=== PATIENT | male | born 1955 | race Caucasian/White ===

== ENCOUNTER 2018-08-11 13:25 | Outpatient (CLI) | payer BC ==
[2018-08-11 14:16] LABS: Hemoglobin 15.2 g/dL (14.0-18.0); Mean Corpuscular Hemoglobin 29.1 pg (27.0-31.0); Mean Corpuscular Volume 85.6 fL (78.0-98.0); Mean Platelet Volume 7.1 fL (7.4-10.4); Platelet Count 168 thou/uL (130-400); RBC Distribution Width 11.8 % (11.5-14.5); Red Blood Cell (RBC) Count 5.23 mill/uL (4.70-6.10)
[2018-08-11 14:23] LABS: INR-International Normal Ratio 1.1; PTT 27.8 SEC (22.9-36.1); Prothrombin Time 13.9 SEC (12.0-14.7)
[2018-08-11 14:36] LABS: Anion Gap 9 mmol/L (10-20); BUN (Urea Nitrogen) 15 mg/dL (8.4-25.7); Calc. Creatinine Clearance 0 mL/min (70-130); Calcium 9.7 mg/dL (7.8-10.44); Carbon Dioxide 26 mmol/L (23-31); Chloride 106 mmol/L (98-107); Estimated GFR-MDRD 80; Glucose 87 mg/dL (80-115); Potassium 3.9 mmol/L (3.5-5.1); Sodium 137 mmol/L (136-145)
== END 2018-08-11 13:26 | disposition home or self-care (01) ==
LOC: LABBT 13:25
PROVIDERS: ATTEND Surgery
DX: Z01.818 Encounter for other preprocedural examination (principal); M48.061 Spinal stenosis, lumbar region without neurogenic claudication; M54.16 Radiculopathy, lumbar region
CPT/HCPCS: 80048; 85027; 85610; 85730

== ENCOUNTER 2018-08-19 07:31 | Day surgery (SDC) | payer BC ==
[2018-08-11 13:36] VITALS: BMI 26.9
[2018-08-19] MEDS ORDERED: CEFAZOLIN 2 GM/50 ML BAG ONE (08:27)
[2018-08-19] MEDS ORDERED: Sodium Chloride 0.9% 10 ML ONE (08:59)
[2018-08-19] MEDS ORDERED: Bacitracin Zinc Ointment 30 gm TUBE ONE (09:00)
[2018-08-19] MEDS ORDERED: Thrombin 5000 UNITS/5 ML VIAL ONE (09:00)
[2018-08-19] MEDS ORDERED: Metoclopramide HCl 10 MG/2 ML VIAL ONE (09:46)
[2018-08-19] MEDS ORDERED: Ondansetron PF 4 MG/2 ML Vial ONE (09:46)
[2018-08-19] MEDS ORDERED: PHENYLEPHRINE-NS 100 MCG/ML 10 ML SYRINGE ONE (09:46)
[2018-08-19] MEDS ORDERED: Lidocaine 1% PF 5 ML VIAL ONE (09:46)
[2018-08-19] MEDS ORDERED: Glycopyrrolate 0.2 MG/ML 5 ML SYRINGE ONE (09:46)
[2018-08-19] MEDS ORDERED: Ketorolac Tromethamine 30 MG/ML VIAL ONE (09:46)
[2018-08-19] MEDS ORDERED: Dexamethasone 20 MG/5 ML VIAL ONE (09:46)
[2018-08-19] MEDS ORDERED: PROPOFOL 200 MG/20 ML VIAL ONE (09:46)
[2018-08-19] MEDS ORDERED: Fentanyl 250 MCG/5 ML VIAL ONE (09:57)
[2018-08-19] MEDS ORDERED: HYDROmorphone 2 MG/ML VIAL SLOW IVP PRN (11:27)
[2018-08-19] MEDS ORDERED: Promethazine HCl 25 MG/ML VIAL SLOW IVP PRN (11:27)
[2018-08-19] MEDS ORDERED: PACU-Morphine 4MG/ML VIAL SLOW IVP PRN (11:27)
[2018-08-19] MEDS ORDERED: Promethazine HCl 25 MG/ML VIAL IM PRN ×2 (11:27→12:24)
[2018-08-19] MEDS ORDERED: Ondansetron HCl/PF 4 MG/2 ML Vial IVP PRN (11:27)
[2018-08-19] MEDS ORDERED: Meperidine HCl/PF 25 MG/ML VIAL SLOW IVP PRN (11:27)
[2018-08-19] MEDS ORDERED: Morphine Sulfate 2 MG/ML SYRINGE SLOW IVP PRN (11:27)
[2018-08-19] MEDS ORDERED: HYDROmorphone 2 MG/ML VIAL ONE (12:19)
[2018-08-19] MEDS ORDERED: Milk Of Magnesia 30 ML UDCUP PO PRN (12:24)
[2018-08-19] MEDS ORDERED: HYDROcodone/Acetaminophen 7.5/325 mg Tablet PO PRN (12:24)
[2018-08-19] MEDS ORDERED: Bisacodyl 10 MG SUPP PR PRN (12:24)
[2018-08-19] MEDS ORDERED: tiZANidine HCl 4 MG TAB PO PRN (12:24)
[2018-08-19] MEDS ORDERED: Morphine 2 MG/ML SYRINGE SLOW IVP PRN (12:24)
[2018-08-19] MEDS ORDERED: Mag-Al 1200 mg/1200 mg/30 ML UDCUP PO PRN (12:24)
[2018-08-19] MEDS ORDERED: traMADol HCl 50 MG TAB PO PRN (12:24)
[2018-08-19] MEDS ORDERED: Acetaminophen 325 MG TAB PO PRN (12:24)
[2018-08-19] MEDS ORDERED: Fleet Enema 133 ML BOT PR PRN (12:24)
[2018-08-19] MEDS ORDERED: CEFAZOLIN/Water 2 GM/20 ML SYRINGE SLOW IVP SCH (12:30)
[2018-08-19] MEDS ORDERED: ACETAMINOPHEN PO PRN (12:31)
[2018-08-19] MEDS ORDERED: PHENYLEPHRINE PO PRN (12:31)
[2018-08-19] MEDS ORDERED: [UNRECOGNIZED DRUG - OTHER] PO PRN (12:31)
[2018-08-19] MEDS ORDERED: Oxymetazoline HCl 0.05% (30 ML BOT) NS PRN (12:31)
[2018-08-19] MEDS ORDERED: GUAIFENESIN PO PRN (12:31)
[2018-08-19] MEDS: Sodium Chloride 0.9% 1,000 ML IV SCH (15:24)
[2018-08-19] MEDS: CEFAZOLIN 2 GM/50 ML-DEXTROSE 2 GM in Premix Bag 1 BAG IVPB SCH ×2 (15:24→23:52)
[2018-08-19] MEDS ORDERED: QUETIAPINE FUMARATE PO SCH (21:00)
[2018-08-19] MEDS: Acetaminophen/Codeine 30-300mg Tablet PO PRN (23:52)
[2018-08-20] MEDS: Sodium Chloride 0.9% 1,000 ML IV SCH (05:42)
[2018-08-20] MEDS: Acetaminophen/Codeine 30-300mg Tablet PO PRN (08:57)
[2018-08-20] MEDS ORDERED: Venlafaxine HCl XR 75 MG CAP PO SCH (09:00)
[2018-08-20] MEDS ORDERED: DESVENLAFAXINE 50 MG PO SCH (09:00)
[2018-08-20] MEDS ORDERED: Fluticasone Propionate Nasal Spray 16 gm Bottle NASAL SCH (09:00)
[2018-08-20] MEDS ORDERED: Non-Formulary Item 1 EACH (Losartan Potassium [Losartan Potassium] 1 TAB) PO SCH (09:00)
[2018-08-20] MEDS ORDERED: Losartan 25 MG TAB PO SCH (09:00)
[2018-08-20] MEDS ORDERED: Spironolactone 25 MG TAB PO SCH (09:00)
--- NOTE | 2018-08-20 09:01 | OP ---
DATE OF PROCEDURE: 08/19/2018 OPERATING ROOM: 11. WOUND CLASSIFICATION: Type 1 wound. CUSTOMER SUPPORT ADVISOR: Heriberto Frankel PA-C PREPROCEDURE DIAGNOSIS: Lumbar stenosis with low back and leg pain. POSTPROCEDURE DIAGNOSIS: Lumbar stenosis with low back and leg pain. PROCEDURES PERFORMED: L3-L4 and L4-L5 laminectomies, partial facetectomies, and foraminotomies over the L3, L4, and L5 nerve roots. DESCRIPTION OF PROCEDURE: After informed consent was obtained from the patient, the patient was brought to OR 11. Proper patient pause and identification were carried out. He was placed under excellent general endotracheal anesthesia and positioned prone on the OR table. All appropriate points were padded. We identified the L3, L4, and L5 dorsal spines. A linear albertina was made over this area. This area was sterilely cleansed, prepared, and draped. After proper patient pause and identification were carried out, the wound was then opened with a combination of sharp, monopolar, and blunt dissection. The L3, L4, and L5 dorsal spines and lamina were exposed. Localization film confirmed our area of interest. We then performed L3, L4, and L5 laminectomies, partial facetectomies, and foraminotomies over the L3, L4, and L5 nerve roots. Copious irrigation and hemostasis occurred throughout. The wound was then maximally hemostased and closed in anatomic layers following sprinkling of vancomycin powder. The patient then emerged from anesthesia. Job ID: [id number]
--- NOTE | 2018-08-20 10:10 | PRG ---
DATE OF SERVICE: 08/20/2018 SUBJECTIVE: Mr. Allen is postoperative day #1 from lumbar decompression. He is doing well with resolution in his leg pain. We will plan on dismissing him today. Job ID: [id number]
[2018-08-20 11:49] VITALS: BP 112/69; TEMP 98
== END 2018-08-20 09:35 | disposition home or self-care (01) ==
LOC: SDC 07:31 → SURG B 12:24 → UNDOADMOB 12:24 → SDC 08-20 09:35 → UNDODISOB 08-20 11:45
PROVIDERS: ATTEND Surgery
PROC: 01NB0ZZ Release Lumbar Nerve, Open Approach (ICD-10-PCS; principal; 2018-08-19)
DX: M48.061 Spinal stenosis, lumbar region without neurogenic claudication (principal); I10 Essential (primary) hypertension; Z79.899 Other long term (current) drug therapy; Z90.49 Acquired absence of other specified parts of digestive tract
CPT/HCPCS: 76001; J1100; J1170; J1885; J2001; J2405; J2704; J2765; J3010; J3370; J3490

== ENCOUNTER 2021-07-19 06:49 | Outpatient (CLI) | payer BC ==
[2021-07-19 11:25] LABS: #Basophils 0.1 10x3/uL (0.0-0.2); #Eosinphils 0.2 10x3/uL (0.0-0.5); #Monocytes 0.4 10x3/uL (0.0-1.1); #Neutrophils 1.9 10x3/uL (1.5-8.4); %Basophils 1.3 % (0.0-2.0); %Eosinophils 5.3 % (0.0-6.0); %Lymphocytes 32.6 % (18.0-47.0); %Monocytes 10.1 % (0.0-10.0); %Neutrophils 50.4 % (40.0-75.0); Hemoglobin 14.2 g/dL (13.5-17.5); Mean Corpuscular HGB CONC 32.9 g/dL (32.0-36.0); Mean Corpuscular Volume 85.2 fl (81.2-95.1); Mean Platelet Volume 9.9 fl (7.4-10.4); Platelet Count 143 10x3/uL (150-450); RBC Distribution Width 13.8 % (11.5-14.5); Red Blood Cell (RBC) Count 5.07 10x6/uL (4.32-5.72); White Blood Cell (WBC) Count 3.8 10x3/uL (3.5-10.5)
[2021-07-19 11:34] LABS: ALT (SGPT) 22 U/L (8-55); AST (SGOT) 20 U/L (5-34); Albumin 4.3 g/dL (3.4-4.8); Alkaline Phosphatase 63 U/L (40-110); Anion Gap 12 mmol/L (10-20); BUN (Urea Nitrogen) 16 mg/dL (8.4-25.7); Bilirubin, Total 0.4 mg/dL (0.2-1.2); Calc. Creatinine Clearance 0 mL/min (70-130); Calcium 9.2 mg/dL (7.8-10.44); Carbon Dioxide 24 mmol/L (23-31); Chloride 109 mmol/L (98-107); Cholesterol 191 mg/dl (< 200 Desired); Globulin 2.7 g/dL (2.4-3.5); Glucose 105 mg/dL (80-115); HDL Cholesterol 32 mg/dL (>60 Neg Risk); LDL Cholesterol, Calculated 129 mg/dL; Potassium 4.2 mmol/L (3.5-5.1); Sodium 141 mmol/L (136-145); Triglycerides 150 mg/dL (Less than 150)
[2021-07-19 18:08] LABS: SARS-CoV-2 PCR by NAA Not Detected (NotDetected)
== END 2021-07-19 06:50 | disposition home or self-care (01) ==
LOC: LABBT 06:49
PROVIDERS: ATTEND Internal Medicine Cardiovascular Disease
DX: Z01.812 Encounter for preprocedural laboratory examination (principal); I44.7 Left bundle-branch block, unspecified; Z20.822 Contact with and (suspected) exposure to COVID-19
CPT/HCPCS: 80053; 80061; 85025; U0003; U0005

== ENCOUNTER → 2021-07-24 | Day surgery (SDC) | payer BC ==
[2021-07-23 12:07] VITALS: BMI 26.9
[~2021-07-24] MED LIST: Adenosine 6 MG/2 ML VIAL ONE; Fentanyl 100 MCG/2 ML VIAL ONE; Heparin 10,000 UNITS/ 10 ML VIAL ONE; Iopamidol 370 76% 100 ML VIAL ONE; Lidocaine 1% (PF) 30 ML VIAL ONE; Midazolam HCl 2 mg/2 ml Vial ONE; Nitroglycerin 100MG/250ML BOT 250 ML ONE; Ondansetron PF 4 MG/2 ML Vial ONE; Verapamil 5 MG/2 ML VIAL ONE
== END ==
LOC: SDC 05:52
PROVIDERS: ATTEND Internal Medicine Cardiovascular Disease
PROC: B2111ZZ Fluoroscopy of Multiple Coronary Arteries using Low Osmolar Contrast (ICD-10-PCS; principal; 2021-07-24)
PROC: 4A023N7 Measurement of Cardiac Sampling and Pressure, Left Heart, Percutaneous Approach (ICD-10-PCS; principal; 2021-07-24)
DX: I44.7 Left bundle-branch block, unspecified (principal); I25.10 Atherosclerotic heart disease of native coronary artery without angina pectoris; R00.1 Bradycardia, unspecified; I10 Essential (primary) hypertension; Z79.899 Other long term (current) drug therapy
CPT/HCPCS: 93458; 99152; J0153; J1644; J2001; J2250; J2405; J3010; Q9967